=== PATIENT | male | born 1955 | race Caucasian/White ===

== ENCOUNTER → 2024-07-12 | Outpatient (CLI) | payer OTHER ==
[~2024-07-12] MED LIST: ALLO100 PO; BP MED PO; CRUTCH4 USE; HYDACE5 PO; IBUP800 PO; OXYC10ER PO
[2024-07-12 19:12] LABS: CHOL/HDL RATIO 2.8; Cholesterol 112 mg/dL (50-200); HDL Cholesterol 40 mg/dL (>39); LDL/HDL RATIO 0.7; Low Density Lipoprotein Chol 26 mg/dL (0-110); Triglycerides 228 mg/dL (30-160); Very Low Density Lipoprot Chol 45 mg/dL (6-32)
== END | disposition home or self-care (01) ==
LOC: LAB 17:51 → LAB SHORT 17:51
PROVIDERS: Student in an Organized Health Care Education/Training Program
DX: I10 Essential (primary) hypertension (principal); E11.8 Type 2 diabetes mellitus with unspecified complications; R60.0 Localized edema
CPT/HCPCS: 80061; 83036; 83880

== ENCOUNTER → 2024-09-23 | Outpatient (CLI) | payer OTHER | LOC: LAB SHORT 17:33 → LAB 17:33 | DX: M45.9 Ankylosing spondylitis of unspecified sites in spine (principal); M48.00 Spinal stenosis, site unspecified; M54.16 Radiculopathy, lumbar region | CPT/HCPCS: 85651; 86140 ==